=== PATIENT | male | born 1945 | race Caucasian/White ===

== ENCOUNTER 2017-12-25 15:31 | Emergency (ER) | payer BC, OTHER ==
[~2017-12-25] VITALS: Ht 180.3 cm; Wt 82.1 kg
[~2017-12-25 15:31] MED LIST: BABY ASPIRIN81 M1 PO; LANOXIN,DIGIT0.25 MG PO; PRILOSEC20 MG PO; ZESTRIL,PRINIVIL5 MG PO
[2017-12-25 17:45] VITALS: BP 143/77
== END 2017-12-25 17:46 | disposition home or self-care (01) ==
LOC: EME 15:31
DX: M79.604 Pain in right leg (principal); M79.605 Pain in left leg; I10 Essential (primary) hypertension; K21.9 Gastro-esophageal reflux disease without esophagitis; Z85.46 Personal history of malignant neoplasm of prostate; Z79.82 Long term (current) use of aspirin; Z88.0 Allergy status to penicillin
CPT/HCPCS: 93970; 99281; 99283